=== PATIENT | male | born 1955 | race Caucasian/White ===

== ENCOUNTER 2017-04-20 10:21 | Emergency (ER) | payer BC ==
[2017-04-20 10:24] VITALS: Ht 170.2 cm
[2017-04-20] MEDS ORDERED: MoRPHine SULFATE 10 MG/ML CARP/VIAL IV STA (10:44)
[2017-04-20] MEDS ORDERED: ONDANSETRON INJ 2 MG/ML 2 ML VIAL IV STA (10:44)
[2017-04-20 11:08] LABS: BASO % 0.2 %; BASO ABS # 0.01 K/uL (0-0.2); COMPLETE YES; EOS % 1.6 %; HEMATOCRIT 45.3 % (42-52); IG% 0.2 %; LYMPH % 32.3 %; LYMPH ABS # 1.64 K/uL (1.2-3.4); MEAN CELL VOLUME 88.1 fL (80-100); MEAN CORPUSCULAR HEMOGLOBIN 31.9 pg (25-34); MEAN CORPUSCULAR HGB CONC 36.2 g/dl (32-36); MEAN PLATELET VOLUME 9.9 fL (7.4-10.4); MONO % 9.1 %; NEUT % 56.6 %; PLATELET COUNT 229 K/uL (130-400); RED BLOOD COUNT 5.14 M/uL (4.7-6.1); WHITE BLOOD COUNT 5.07 K/uL (4.8-10.8)
[2017-04-20 11:24] LABS: BLOOD UREA NITROGEN 19 mg/dl (7-18); BUN/CREATININE RATIO 16.6 (10-20); CARBON DIOXIDE 21 mmol/L (21-32); CHLORIDE 108 mmol/L (98-107); CREATININE 1.14 mg/dl (0.60-1.40); GLUCOSE 124 mg/dl (70-99); POTASSIUM 3.4 mmol/L (3.5-5.1); SODIUM 140 mmol/L (136-145)
--- NOTE | 2017-04-20 11:39 | DIAGNOSTIC IMAGING REPORT ---
L PELVIS/UNILATERAL HIP 2-3VIEWS CLINICAL HISTORY: l hip pain pain Discussion: examination shows moderate degenerative narrowing left hip joint space. No evidence for acute fracture present. There is no evidence for acetabular protrusion. COMPARISON: None. . IMPRESSION: Moderate degenerative change. No acute process. The above report was generated using voice recognition software. It may contain grammatical, syntax or spelling errors. Electronically signed by: Moshe Ulloa M.D. 04/20/2017 11:38 AM Dictated Date/Time: 04/20/2017 11:35 AM
[2017-04-20] MEDS ORDERED: METHYLPREDNISOLONE 125 MG VIAL IV STA (12:18)
[2017-04-20] MEDS ORDERED: OXYC1TAB3 PO (12:21)
[2017-04-20] MEDS ORDERED: PRED50TA PO (12:21)
[2017-04-20 12:34] VITALS: BP 132/78; PULSE 68; O2SAT 97
--- NOTE | 2017-04-20 17:47 | EMERGENCY ROOM VISIT NOTE ---
History Report prepared by Jose Cruz: Omar Gale Under the Supervision of: Dr. Sammy Feliciano D.O. First contact with patient: 10:28 Chief Complaint: HIP PAIN Stated Complaint: HIP PAIN History of Present Illness The patient is a 61 year old male who presents to the Emergency Room with complaints of worsening left sided dull/ache-like hip pain that began 2 days ago. He has never experienced this kind of pain before. When his pain began he had just traveled in the car with his for the holiday. He denies any trauma or injury at that time. His pain is intermittently shooting down his left leg. Standing or moving exacerbates his pain. He notes that on his way into the ER this morning, he started to experience tingling to his fingers and toes bilaterally. He has been using ice and heat to try relieve his pain. He is able to urinate and defecate normally. He denies any known medical problems and does not take any medications. He is allergic to Codeine. Pt denies headache, change in vision, fevers, chest pain, shortness of breath, abdominal pain, nausea, vomiting, diarrhea, pain with urination, and melena. No weakness in the legs or numbness. No history of cancer or IV drug use. Source of History: patient Onset: 2 days ago Position: other (Left hip) Symptom Intensity: moderate Quality: ache, dull Timing: worsening Modifying Factors (Worsening): movement, other (Standing) Associated Symptoms: No fevers, No chest pain, No SOB, No nausea, No vomiting, No abdominal pain, No melena, No diarrhea, No urinary symptoms Note: He is having intermittent shooting pains down his left leg. Review of Systems See HPI for pertinent positives & negatives. A total of 10 systems reviewed and were otherwise negative. Past Medical & Surgical Medical Problems: (1) No Known Active Medical Problems Family History Diabetes mellitus FH: cancer Hypertension Social History Smoking Status: Former Smoker Drug Use: none Marital Status: Housing Status: lives with family Occupation Status: retired Current/Historical Medications Scheduled Prednisone (Prednisone), 50 MG PO DAILY Scheduled PRN Oxycodone Immediate Rel Tab (Roxicodone Ir), 5 MG PO Q6H PRN for Pain Allergies Coded Allergies: Codeine (Unverified Allergy, Intermediate, "SICK" AND VERY MEAN, 11/27/17) Physical Exam Vital Signs Date Time Temp Pulse Resp B/P (MAP) Pulse Ox O2 Delivery O2 Flow Rate FiO2 04/20/17 12:34 68 18 132/78 97 Room Air 04/20/17 11:01 67 20 98 Room Air 04/20/17 10:24 93 17 146/99 98 Room Air Physical Exam GENERAL: Lying on right side in moderate distress holding left hip, alert, well appearing, well nourished, non-toxic EYE EXAM: normal conjunctiva. OROPHARYNX: no exudate, no erythema, lips, buccal mucosa, and tongue normal and mucous membranes are moist NECK: supple, no nuchal rigidity, no adenopathy, non-tender LUNGS: Clear to auscultation. Normal chest wall mechanics HEART: no murmurs, S1 normal and S2 normal ABDOMEN: abdomen soft, non-tender, normo-active bowel sounds, no masses, no rebound or guarding. BACK: Back is symmetrical on inspection and there is no deformity, no midline tenderness, no CVA tenderness. SKIN: no rashes and no bruising UPPER EXTREMITIES: upper extremities are grossly normal. LOWER EXTREMITIES: Flexion and extension of the left hip, knee, ankle, and EHL 5 /5. Gross sensation intact. There is moderate pain with flexion beyond 70 degrees in the hip. Skin is intact. DP 2/4. Tenderness around the left femoral head/neck on palpation. NEURO EXAM: Normal sensorium. Medical Decision & Procedures ER Provider Diagnostic Interpretation: Radiology results as stated below per my review and the radiologist's interpretation: L PELVIS/UNILATERAL HIP 2-3VIEWS CLINICAL HISTORY: l hip pain pain Discussion: examination shows moderate degenerative narrowing left hip joint space. No evidence for acute fracture present. There is no evidence for acetabular protrusion. COMPARISON: None. IMPRESSION: Moderate degenerative change. No acute process. The above report was generated using voice recognition software. It may contain grammatical, syntax or spelling errors. Electronically signed by: Moshe Ulloa M.D. 04/20/2017 11:38 AM Dictated Date/Time: 04/20/2017 11:35 AM Laboratory Results 04/20/17 10:55 Red Blood Count 5.14, Mean Corpuscular Volume 88.1, Mean Corpuscular Hemoglobin 31.9, Mean Corpuscular Hemoglobin Concent 36.2, Mean Platelet Volume 9.9, Neutrophils (%) (Auto) 56.6, Lymphocytes (%) (Auto) 32.3, Monocytes (%) (Auto) 9.1, Eosinophils (%) (Auto) 1.6, Basophils (%) (Auto) 0.2, Neutrophils # (Auto) 2.87, Lymphocytes # (Auto) 1.64, Monocytes # (Auto) 0.46, Eosinophils # (Auto) 0.08, Basophils # (Auto) 0.01 04/20/17 10:55 Test 04/20/17 10:55 White Blood Count 5.07 K/uL (4.8-10.8) Red Blood Count 5.14 M/uL (4.7-6.1) Hemoglobin 16.4 g/dL (14.0-18.0) Hematocrit 45.3 % (42-52) Mean Corpuscular Volume 88.1 fL (80-100) Mean Corpuscular Hemoglobin 31.9 pg (25-34) Mean Corpuscular Hemoglobin Concent 36.2 g/dl (32-36) Platelet Count 229 K/uL (130-400) Mean Platelet Volume 9.9 fL (7.4-10.4) Neutrophils (%) (Auto) 56.6 % Lymphocytes (%) (Auto) 32.3 % Monocytes (%) (Auto) 9.1 % Eosinophils (%) (Auto) 1.6 % Basophils (%) (Auto) 0.2 % Neutrophils # (Auto) 2.87 K/uL (1.4-6.5) Lymphocytes # (Auto) 1.64 K/uL (1.2-3.4) Monocytes # (Auto) 0.46 K/uL (0.11-0.59) Eosinophils # (Auto) 0.08 K/uL (0-0.5) Basophils # (Auto) 0.01 K/uL (0-0.2) RDW Standard Deviation 41.4 fL (36.4-46.3) RDW Coefficient of Variation 12.9 % (11.5-14.5) Immature Granulocyte % (Auto) 0.2 % Immature Granulocyte # (Auto) 0.01 K/uL (0.00-0.02) Anion Gap 11.0 mmol/L (3-11) Estimated GFR () 80.6 Estimated GFR (Non- 69.5 BUN/Creatinine Ratio 16.6 (10-20) Calcium Level 9.0 mg/dl (8.5-10.1) Laboratory results per my review. Medications Administered Medications (Trade) Dose Ordered Sig/Eugenie Route Start Time Stop Time Status Last Admin Dose Admin Morphine Sulfate (MoRPHine SULFATE INJ) 6 mg NOW STAT IV 04/20/17 10:44 04/20/17 10:46 DC 04/20/17 10:59 6 MG Ondansetron HCl (Zofran Inj) 4 mg NOW STAT IV 04/20/17 10:44 04/20/17 10:46 DC 04/20/17 10:59 4 MG Methylprednisolone Sodium Succinate (Solu-Medrol IV) 125 mg NOW STAT IV 04/20/17 12:18 04/20/17 12:19 DC 04/20/17 12:34 125 MG ED Course ED COURSE: Vital signs were reviewed and showed hypertension. The patients medical record was reviewed The above diagnostic studies were performed and reviewed. ED treatments and interventions as stated above. 1028: The patient was evaluated in room A10. A complete history and physical examination was performed. 1044: Ordered Zofran Inj 4 mg IV, Morphine Sulfate 6 mg IV 1218: Ordered Solu-Medrol IV 125 mg IV 1220: Upon reevaluation, the patient is resting. He states that he has had Oxycodone in the past without any issues. I discussed my findings with the patient and he understands and agrees with the treatment plan. Based on the patients age, coexisting illnesses, exam and lab findings the decision to treat as an outpatient was made. The patient remained stable while under my care. The patient appeared well at the time of discharge. Medical Decision Differential diagnosis: Etiologies such as fracture, dislocation, neurovascular compromise, compartment syndrome, soft tissue injury, as well as others were entertained. Patient is a 61-year-old male who presents to ER for left hip pain which started 2 days ago while he was sitting in the car. Denies any trauma. No history cancer fevers. No IV drug use. On exam is acute tenderness tracking through his left SI joint down the back of his left leg. CBC was unremarkable. BMP shows a potassium of 3.4. X-ray of the hip and pelvis was unremarkable. Pain is clearly reproducible. No swelling. Nothing to suggest DVT. Pulses are intact. Patient was given IV morphine and Toradol with improvement of pain. He was given IV steroids. He was discharged with sciatica to follow-up with PCP. Discussed with Pt concerning signs and symptoms to watch out for. Pt was instructed to follow up with their PCP and discussed with the patient their option to return to the ED at anytime for persistent or worsening symptoms. The appropriate anticipatory guidance and out-patient management, including indications for return to the emergency department, were explained at length to the patient and understood. [place] Drug Monitoring Program Search Results: patient reviewed within database, no issues identified Medication Reconcilliation Current Medication List: was personally reviewed by me Blood Pressure Screening Patient's blood pressure: Elevated blood pressure Blood pressure disposition: Elevated BP felt to be situational Impression Primary Impression: Hip pain Additional Impression: Hypokalemia Scribe Attestation The scribe's documentation has been prepared under my direction and personally reviewed by me in its entirety. I confirm that the note above accurately reflects all work, treatment, procedures, and medical decision making performed by me. Departure Information Dispostion Home / Self-Care Prescriptions Oxycodone Immediate Rel Tab (ROXICODONE IR) 5 Mg Tab 5 MG PO Q6H Y for Pain, #10 TAB Prov: Sammy Feliciano, DO 04/20/17 Prednisone (PREDNISONE) 50 Mg Tab 50 MG PO DAILY for 4 Days, TAB Prov: Sammy Feliciano, DO 04/20/17 Referrals Alcon Remy M.D. Forms HOME CARE DOCUMENTATION FORM, IMPORTANT VISIT INFORMATION, WORK / SCHOOL INSTRUCTIONS Patient Instructions ED Sciatica, My [facility] Additional Instructions Please follow up with your primary care doctor with in the next 24 hours. Any worsening of your symptoms, please return to the ED immediately. This includes any fevers greater than 100.4, worsening pain, weakness in your legs, inability to walk, numbness in her groin, unable to urinate, unable to move bowels, chest pain, shortness breath, persistent nausea, vomiting, unable to eat or drink, or any other concerning signs or symptoms from your standpoint. You were given medications during this visit that will inhibit your ability to drive, operate machinery and work. Please do NOT drive, operate machinery or work for the next 12hrs. You were also given a prescription for a narcotic. While taking this medication you should also not drive, operate machinery and or work. Problem Qualifiers Primary Impression: Hip pain Laterality: left Qualified Codes: M25.552 - Pain in left hip
== END 2017-04-20 12:43 | disposition home or self-care (01) ==
LOC: C.EDB 10:22 → C.EDA 12:43
DX: M25.552 Pain in left hip (principal); E87.6 Hypokalemia; Z87.891 Personal history of nicotine dependence; Z88.5 Allergy status to narcotic agent; Z83.3 Family history of diabetes mellitus; Z80.9 Family history of malignant neoplasm, unspecified; Z82.49 Family history of ischemic heart disease and other diseases of the circulatory system

== ENCOUNTER 2017-04-25 20:13 | Inpatient (IN) | payer BC ==
[~2017-04-25] VITALS: Ht 172.7 cm; Wt 75.0 kg
[~2017-04-25 20:13] MED LIST: OXYC1TAB3 PO; PRED50TA PO
[2017-04-25] MEDS ORDERED: HYDR-5688 PO (20:52)
[2017-04-25] MEDS ORDERED: MAGN400T6 PO (20:52)
[2017-04-25] MEDS ORDERED: DOCU100T7 PO (20:52)
[2017-04-25] MEDS ORDERED: KETO10TA PO (20:52)
--- NOTE | 2017-04-25 21:33 | EMERGENCY ROOM VISIT NOTE ---
History Report prepared by Jose Cruz: Ramu Goodman Under the Supervision of: Dr. Dayan Prieto D.O. 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 He reports being in severe pain, screaming, and unable to get out of bed due to the pain. EMS gave him 4 mg of morphine and 4 mg of Zofran, which he notes has improved his pain. He currently rates his pain a 3/10 in severity. He notes he has left foot numbness, left leg weakness, mild abdominal pain, and mild back pain. He reports taking a stool softener today and yesterday. He notes taking magnesium supplements to help his constipation. He reported to the ED 6 days ago with similar symptoms. He was given steroids for four days. He was seen by his orthopedic doctor, Dr. Perry five days ago whom prescribed Toradol, which he began yesterday. He reports the pain worsened overnight. He notes Dr. Perry thinks he has sciatica. He notes a history of a herniated disc and back injury. He is taking Acetominophen, Toradol and Hydrocodone for pain at home. He last ate 9 hours ago. He has been unable to defecate recently due to his pain. 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 Review of Systems See HPI for pertinent positives & negatives. A total of 10 systems reviewed and were otherwise negative. Past Medical & Surgical Medical Problems: (1) Ambulatory dysfunction (2) No Known Active Medical Problems (3) Radiculopathy due to lumbar intervertebral disc disorder Family History Diabetes mellitus FH: cancer Hypertension Social History Smoking Status: Former Smoker Drug Use: none Marital Status: Housing Status: lives with family Occupation Status: retired Current/Historical Medications Scheduled Docusate Sodium (Stool Softener), 1 TAB PO DAILY Magnesium Oxide (Mag-Ox), 400 MG PO DAILY Scheduled PRN Hydrocodone/Acetaminophen 5MG/325MG ([place] 5MG/325MG), 1-2 TABLET PO Q6H PRN for Pain Ketorolac (Toradol), 10 MG PO Q6H PRN for Pain Allergies Coded Allergies: Codeine (Unverified Allergy, Intermediate, "SICK" AND VERY MEAN, 04/25/17) Physical Exam Vital Signs Date Time Temp Pulse Resp B/P (MAP) Pulse Ox O2 Delivery O2 Flow Rate FiO2 04/25/17 23:33 65 18 114/65 93 Room Air 04/25/17 22:08 65 18 117/81 97 Room Air 04/25/17 20:21 36.5 75 18 145/83 99 Room Air Physical Exam HEENT: Head - normocephalic and atraumatic. Pupils are equal, round, and reactive to light. Extraocular eye muscles are intact and sclera are anicteric. Ears - bilaterally patent canals with noninjected tympanic membranes and no evidence of hemotympanum. Nose - moist nasal mucosa without discharge. Mouth - moist buccal mucosa. Oropharynx is nonerythematous and there is no tonsillar exudate or edema noted. Neck: Supple; no JVD, nuchal rigidity, cervical lymphadenopathy. Heart: Regular rate and rhythm. There is a normal S1 and S2 with no murmurs, clicks, or gallops appreciated. Lungs: Clear to auscultation bilaterally with no wheezes, rales, or rhonchi. Abdomen: Soft, completely nontender, nondistended, with good bowel sounds. There are no palpable pulsatile masses or hepatosplenomegaly. There is no guarding, rigidity, or rebound noted. Extremities: No evidence of cyanosis, clubbing, or edema. There are easily palpable peripheral pulses. Weakness with pedal push and pull of the LLE and weakness with flexion of the left hip. Patellar reflexes are normal bilaterally. Medical Decision & Procedures ER Provider Diagnostic Interpretation: Radiology results as stated below per my review and [facility] interpretation: MRI L SPINE: Multilevel degenerative disc disease of the lumbar spine, worse at L4-L5 where there is severe left foraminal narrowing. L1-L2, posterior disc bulge and facet arthropathy cause mild canal narrowing. Mild edema signal at the inferior endplate of L1 is favored to be degenerative in etiology. L2-L3, posterior disc bulge with annular fissure. Facet arthroplasty. Mild canal and foraminal narrowing. L3-L4, right lateral disc protrusion with annular fissure causes mild mass effect on the exited right L3 nerve root. L4-L5, moderate disc space narrowing. Posterior disc extrusion/osteophyte complex and facet arthropathy/ligamentous hypertrophy causes moderate left lateral recess narrowing, severe left foraminal narrowing, and, moderate right foraminal narrowing. Minimal canal narrowing. Medications Administered Medications (Trade) Dose Ordered Sig/Eugenie Route Start Time Stop Time Status Last Admin Dose Admin Ketorolac Tromethamine (Toradol Inj) 30 mg NOW STAT IV 04/25/17 22:02 04/25/17 22:03 DC 04/25/17 22:17 30 MG Lorazepam (Ativan Inj) 1 mg NOW STAT IV 04/25/17 22:02 04/25/17 22:03 DC 04/25/17 22:16 1 MG Morphine Sulfate (MoRPHine SULFATE INJ) 4 mg NOW STAT IV 04/25/17 23:20 04/25/17 23:21 DC 04/25/17 23:30 4 MG Procedure Ordered Lorazepam IV Ordered Toradol IV Ordered Morphine Sulfate IV ED Course 2020: Patient was evaluated in room C3. A complete history and physical examination was performed. IV lock was established. 2107: I reassessed the patient at this time. He is resting, but still in pain. 2201: I reassessed the patient at this time. He is headed to MRI. He is still in pain. 6: Ordered Lorazepam 1 mg IV 2217: Ordered Toradol 30 mg IV 2318: I reassessed the patient at this time. He is still in pain. I ordered morphine. 2330: Ordered Morphine Sulfate 4 mg IV 2342: I reassessed the patient at this time. He is resting comfortably. 0: Upon reevaluation, I discussed findings and results with him. He verbalized agreement of the treatment plan. I spoke with Dr. Bishop, hospitalist of the [facility]. The patient will be evaluated for further management and care. Medical Decision The patient is a 61 year old male who presents to the ED with left hip pain. Differential diagnosis includes degenerative joint to left hip, sciatica, and lumbar radiculopathy. The patient has had a sudden increase in his left hip pain and left lower extremity pain. He had been seen by Dr. donovan garcia who prescribed a short course of steroids and then nonsteroidal anti-inflammatories. Unfortunately, the patient's pain has significantly escalated. He was unable to get out of bed or move about his house. The patient was brought emergency department by a balance after receiving IV morphine. Patient underwent MRI here in the emergency department which shows significant disc extrusion and osteophyte formation at the L4-L5 neural foramina on the left which is most likely contribute into the patient's symptoms. The patient is to have intractable pain. I discussed the case with the patient and his . I discussed the case with Dr. Sol he will evaluate for further management. Medication Reconcilliation Current Medication List: was personally reviewed by me Blood Pressure Screening Patient's blood pressure: Normal blood pressure Consults Time Called: 005 Consulting Physician: Dr. Bishop hospitalist Returned Call: [address] Bishop, hospitalist of the [facility]. The patient will be evaluated for further management and care. Impression Primary Impression: Intractable neuropathic pain of left lower extremity Additional Impression: Lumbar radiculopathy, acute Scribe Attestation The scribe's documentation has been prepared under my direction and personally reviewed by me in its entirety. I confirm that the note above accurately reflects all work, treatment, procedures, and medical decision making performed by me. Departure Information Dispostion Being Evaluated By Hospitalist Referrals Alcon Remy M.D. (PCP) Patient Instructions My [facility] Problem Qualifiers
[2017-04-25] MEDS ORDERED: LORAZEPAM 2 MG/ML 1 ML VIAL IV STA (22:02)
[2017-04-25] MEDS ORDERED: KETOROLAC TROMETHAMINE 30 MG/ML VIAL IV STA (22:02)
[2017-04-25] MEDS ORDERED: MoRPHine SULFATE 4 MG/ML 1 ML CARP\\VIAL IV STA (23:20)
[2017-04-26] MEDS ORDERED: ZOLPIDEM TARTRATE 5 MG TAB PO PRN (01:30)
[2017-04-26] MEDS ORDERED: ONDANSETRON INJ 2 MG/ML 2 ML VIAL IV PRN (01:30)
[2017-04-26] MEDS ORDERED: MAGNESIUM HYDROXIDE SUSP 30 ML UDC PO PRN (01:30)
[2017-04-26] MEDS ORDERED: ACETAMINOPHEN 325 MG TAB PO PRN (01:30)
[2017-04-26] MEDS ORDERED: DEXAMETHASONE INJ 10 MG in SYRINGE 0 ML IV SCH (01:30)
--- NOTE | 2017-04-26 01:34 | History and Physical ---
History & Physical Date & Time of Service: Apr 26, 2017 at 01:27 Chief Complaint: Back Pain Primary Care Physician: Alcon Remy M.D. History of Present Illness Source: patient, hospital records This is a 61 yo m with DDD that is suffering from left lower extremity pain starting approx a week prior. The pain was acute in nature and no trauma was associated with it. The pain affects the left lateral thigh and the left lateral calf and extends to the left lateral malleolus. The pain is aggravated with any movement and in particular flexion of the back. He was evaluated by ortho mid week and plan was for conservative treatment and steroids. Patient has been on his regimen with progression of his pain. As there was worsening pain despite conservative measures the family came to the ED for evaluation. He was noted to have significant DDD on MRI. Past Medical/Surgical History DDD Family History Diabetes mellitus FH: cancer Hypertension Social History Smoking Status: Former Smoker Smokeless Tobacco Use: No Alcohol Use: none Drug Use: none Marital Status: Housing status: lives with family Occupational Status: retired Immunizations History of Influenza Vaccine: Unknown History of Tetanus Vaccine?: Unknown History of Pneumococcal: Unknown History of Hepatitis B Vaccine: Unknown Multi-Drug Resistant Organisms History of MDRO: No Allergies Coded Allergies: Codeine (Unverified Allergy, Intermediate, "SICK" AND VERY MEAN, 04/25/17) Home Medications Scheduled Docusate Sodium (Stool Softener), 1 TAB PO DAILY Magnesium Oxide (Mag-Ox), 400 MG PO DAILY Scheduled PRN Hydrocodone/Acetaminophen 5MG/325MG ([place] 5MG/325MG), 1-2 TABLET PO Q6H PRN for Pain Ketorolac (Toradol), 10 MG PO Q6H PRN for Pain Review of Systems Constitutional: No fever, No chills, No sweats Eyes: No worsening of vision ENT: No hearing loss Respiratory: No cough, No sputum, No wheezing, No shortness of breath, No dyspnea on exertion, No dyspnea at rest Cardiovascular: No chest pain Abdomen: No pain, No nausea, No vomiting, No diarrhea, No constipation Musculoskeletal: + joint pain, + problem reported (as noted above ) Neurologic: + weakness, + numbness/tingling (left lateral calf), + balance problems Psychiatric: + anxiety Endocrine: No fatigue Hematologic / Lymphatic: No abnormal bleeding/bruising Integumentary: No rash Physical Exam Vital Signs Date Time Temp Pulse Resp B/P (MAP) Pulse Ox O2 Delivery O2 Flow Rate FiO2 04/25/17 23:33 65 18 114/65 93 Room Air 04/25/17 22:08 65 18 117/81 97 Room Air 04/25/17 20:21 36.5 75 18 145/83 99 Room Air General Appearance: + mild distress Head: normocephalic, atraumatic Eyes: normal inspection ENT: normal ENT inspection Neck: supple Respiratory/Chest: normal breath sounds, no respiratory distress, no accessory muscle use Cardiovascular: regular rate, rhythm, no murmur, normal peripheral pulses Abdomen/GI: normal bowel sounds, non tender, soft Back: normal inspection, no CVA tenderness Extremities/Musculoskelatal: normal inspection, no calf tenderness, no pedal edema, normal range of motion, + pertinent finding (straight leg positive left LE, sensation intact in bilat LE, limited ROM exam secondary to pain) Neurologic/Psych: alert, normal mood/affect, oriented x 3 Skin: normal color, warm/dry, no rash Lymphatic: no adenopathy Impression Assessment and Plan This is a 61 yo m suffering from L5 radiculopathy secondary to disc herniation/ DDD. No red flag signs noted however the patient has failed outpatient mx and will be admitted to Obs for further evaluation and treatment L5 radiculopathy, failure for outpatient tx - med surg- obs - Dilaudid/ oxycodone for pain control - Decadron 10 mg x 1 - pt/ot DVT Prophylaxis scd Attending addendum: I have physically seen this patient, have supervised the medical residents activities, and agree with the H&P unless as otherwise noted. Assessment and Plan: 1. L4- 5 severe degenerative disc disease/left lower extremity radiculopathy-- Patient with intolerable pain and early loss of muscle tone in left lower extremity. Admit to medical surgical. Give Decadron 10 mg IV in the ED, and then continue to 4 mg IV every 6 hours Tylenol when necessary mild pain, oxycodone when necessary moderate pain, Dilaudid IV when necessary severe pain. Consult his orthopedic spine surgeon Dr. Perry. Level of Care Med/Surg Advanced Directives Existing Advance Directive: No Existing Living Will: No Existing Power of Rn Patient Care: No Resuscitation Status FULL RESUSCITATION VTE Prophylaxis VTE Risk Assessment Done? Y/N: Yes Risk Level: Moderate Given or contraindicated: SCD's Social Service Consult None Apply Note Total Time: Critical Care 30 - 74 minutes Additional Copies To Alcon Remy M.D.
[2017-04-26 02:00] VITALS: BP 150/77; PULSE 78; TEMP 36.9; O2SAT 93
[2017-04-26 02:15] VITALS: Ht 172.7 cm; Wt 75.0 kg
[2017-04-26] MEDS: HYDROmorphone INJ 0.5 MG/0.5 ML SYR IV PRN ×2 (02:16→07:42)
[2017-04-26] MEDS: OXYCODONE HCL IR 5 MG TAB (IMMEDIATE RELEASE) PO PRN ×3 (03:30→17:50)
[2017-04-26] MEDS ORDERED: NURSING VERBAL MED ORDER ONE (05:30)
[2017-04-26] MEDS ORDERED: HYDROmorphone INJ 1 MG/ML SYR ONE (05:57)
[2017-04-26] MEDS ORDERED: HYDROmorphone INJ 1 MG/ML SYR IV STA (05:57)
[2017-04-26 07:24] VITALS: BP 122/76; PULSE 73; TEMP 36.5; O2SAT 90
--- NOTE | 2017-04-26 08:32 | DIAGNOSTIC IMAGING REPORT ---
MRI LUMBAR SPINE WITHOUT IV CONTRAST CLINICAL HISTORY: Left leg weakness. COMPARISON STUDY: No priors TECHNIQUE: MRI of the lumbar spine is performed utilizing various T1 and T2-weighted sequences in the axial and sagittal planes. IV contrast was not administered for this examination. The examination is significantly degraded by motion artifact. FINDINGS: Lumbar spine: Vertebral body height is maintained throughout the lumbar spine. Minimal retrolisthesis is seen at L1-L2, L2-L3, and L4-L5. Small anterior osteophytes are seen throughout. The transverse and spinous processes appear intact. There is no evidence of spondylolysis. Degenerative endplate edema is seen at L1-L2. Mild chronic degenerative endplate change is seen at L4-L5. No destructive bony lesion is suspected. Intervertebral discs: There is degenerative disc desiccation seen throughout the lumbar spine. Moderate loss of height is seen at L4-L5. Mild loss of height is seen at the remaining lumbar levels. Spinal cord: The visualized spinal cord is normal in morphology and signal intensity. The conus medullaris terminates at the T12-L1 interspace. The nerve roots of the cauda equina are normal in morphology. T12-L1: There is a small posterior disc bulge. The central canal and neural foramina appear patent. L1-L2: There is a broad-based posterior disc bulge with annular fissure. There is no significant acquired compromise of the central canal. Mild bilateral subarticular stenosis is observed. The neural foramina appear patent. L1-L2: There is posterior disc bulge and annular fissure. In conjunction with hypertrophy of the ligamentum flavum there is mild acquired compromise of the central canal at this level with a minimum AP diameter of 8.5 mm. There is bilateral subarticular stenosis. This may abut the exiting bilateral L2 nerve roots and the transiting bilateral L3 nerve roots. L3-L4: There is a small posterior disc bulge eccentric to the right. There is only minimal acquired compromise of the central canal at this level. The minimum AP diameter measures 9 mm. There is mild bilateral subarticular stenosis. This may abut the exiting right L3 nerve root and the transiting bilateral L4 nerve roots. The neural foramina appear patent. L4-L5: There is a broad-based posterior disc bulge eccentric to the right. There is no significant acquired central canal compromise at this level. The disc bulge effaces the subarticular space bilaterally and may impinge on the exiting bilateral L4 as well as the transiting right L5 nerve roots. Facet arthropathy causes moderate to severe bilateral neural foraminal stenosis at this level. L5-S1: The central canal is widely patent. Facet arthropathy causes minimal bilateral neural foraminal stenosis. Sacrum: The visualized sacrum is normal in morphology and signal intensity. Soft tissues: The paraspinous soft tissues are normal as imaged. The retroperitoneal structures are grossly normal but incompletely assessed. IMPRESSION: 1. Multilevel lumbosacral spondylosis as above with mild multilevel acquired compromise of the central canal. See discussion for detailed level by level analysis. 2. No destructive bony process is seen. 3. Degenerative endplate edema is noted at L1-L2. Dictated: 04/26/2017 6:51 AM Transcribed: 04/26/2017 8:32 AM JERRY_Laura Electronically signed by: Leonard Dasilva M.D. 04/26/2017 8:39 AM Dictated Date/Time: 04/26/2017 6:51 AM
--- NOTE | 2017-04-26 11:21 | ORTHOPEDIC CONSULTATION ---
DATE OF CONSULTATION: 04/26/2017 CHIEF COMPLAINT: Severe radiculopathy of the left leg. HISTORY OF PRESENT ILLNESS: Hugh is a pleasant 61-year-old male who has a long history of on and off low back pain. Over the past week, he has become much worse. He did see Dr. Augusto Perry in the office on Thursday who got x-rays which confirmed degenerative disk disease of his lumbar spine. He was given oral steroids and pain medications. Unfortunately, throughout the end of the week, his symptoms progressed. They worsened to the point where he came to the Emergency Room, last night. He was evaluated in the Emergency Room and given Decadron as well as Dilaudid, but he was still having severe lower extremity pain. He was unable to get up and ambulate. He was admitted to the medical service and an MRI was obtained of his lumbar spine. Orthopedics was then consulted for evaluation and treatment. PAST MEDICAL HISTORY: Significant for degenerative disk disease of the lumbar spine. ALLERGIES: CODEINE. MEDICATIONS: Include Warren 5/325 as needed for pain, Toradol 10 mg every 6 hours as needed for pain prescribed by Dr. Perry, magnesium 400 mg daily, and Dulcolax 1 tab daily. FAMILY HISTORY: Significant for diabetes and hypertension. SOCIAL HISTORY: He is a retired correctional facility officer. He currently lives with his . REVIEW OF SYSTEMS: He complains of severe back and left leg pain. All other pertinent review of systems are negative. PHYSICAL EXAMINATION: He is lying in bed and I am unable to sit him up or to move him. He is sitting with a pillow under his knees and he says this is the only way that he can get relief. I did a very minimal straight leg raise and he had significant pain in his buttock region into his left hip and down the anterior aspect of his left leg into the lateral aspect of his left foot. He did have 5/5 muscle strength with dorsiflexion and plantar flexion of his left foot and 5/5 muscle strength with big toe extension. His sensation was intact. He was currently having burning and radicular type symptoms into his leg. IMAGING DATA: MRI of the lumbar spine reviewed personally as well as radiology report does show multilevel degenerative disk disease with some mild to moderate canal compromise. It seems to be most severe at the L4-L5 level. IMPRESSION: Degenerative disc disease of the lumbar spine with left-sided radiculopathy. PLAN: He is currently on the medical service. He is getting Dilaudid and oxycodone for the pain. I will be in contact with my partner Dr. Perry to see if he is in town and can see him if he thinks he is an operative candidate. In the meantime, we will certainly continue with the pain control.
--- NOTE | 2017-04-26 12:59 | Progress Note ---
Subjective Date of Service: Apr 26, 2017. Subjective Pt evaluation today including: conversation w/ patient, conversation w/ family , physical exam, chart review, lab review, review of studies, review of inpatient medication list Problem List Medical Problems: (1) Hip pain Status: Acute (2) Intractable neuropathic pain of left lower extremity Status: Acute (3) Lumbar radiculopathy, acute Status: Acute Review of Systems Constitutional: No see HPI, No fever, No chills, No sweats, No weight loss, No weakness, No fatigue, No problem reported Eyes: No see HPI, No worsening of vision, No eye pain, No redness, No discharge , No diplopia, No problem reported ENT: No see HPI, No hearing loss, No unusual epistaxis, No nasal symptoms, No sore throat, No tinnitus, No dental problems, No trouble swallowing, No problem reported Respiratory: No see HPI, No cough, No sputum, No wheezing, No shortness of breath, No dyspnea on exertion, No dyspnea at rest, No hemoptysis, No problem reported Cardiac: No see HPI, No chest pain, No orthopnea, No PND, No edema, No claudication, No palpitations, No problem reported Abdomen: No see HPI, No pain, No nausea, No vomiting, No diarrhea, No constipation, No GI bleeding, No problem reported Musculoskeletal: + joint pain, + muscle pain, + problem reported (severe left hip pain), No see HPI, No swelling, No calf pain Male : No see HPI, No dysuria, No urinary frequency, No incontinence, No nocturia more than once/night, No slowing stream, No hematuria, No sexual dysfunction, No problem reported Neurologic: No see HPI, No memory loss, No paralysis, No weakness, No numbness/ tingling, No vertigo, No balance problems, No problem reported Psychiatric: No see HPI, No depression symptoms, No anhedonism, No anxiety, No insomnia, No substance abuse, No problem reported Heme: No see HPI, No abnormal bleeding/bruising, No clotting problems, No swollen lymph nodes, No night sweats, No problem reported Endo: No see HPI, No fatigue, No excessive thirst, No excessive urination, No problem reported Skin: No see HPI, No rash, No itch, No new/changing skin lesions, No color change, No bleeding, No problem reported Objective Vital Signs Date Time Temp Pulse Resp B/P (MAP) Pulse Ox O2 Delivery O2 Flow Rate FiO2 04/26/17 07:50 Room Air 04/26/17 07:24 36.5 73 19 122/76 (91) 90 Room Air 04/26/17 02:15 Room Air 04/26/17 02:15 Room Air 04/26/17 02:00 36.9 78 18 150/77 (101) 93 Room Air 04/26/17 01:31 69 18 118/71 94 Room Air 04/25/17 23:33 65 18 114/65 93 Room Air 04/25/17 22:08 65 18 117/81 97 Room Air 04/25/17 20:21 36.5 75 18 145/83 99 Room Air Physical Exam General Appearance: WD/WN, no apparent distress Eyes: normal inspection, EOMI ENT: normal ENT inspection, hearing grossly normal Neck: supple Respiratory/Chest: chest non-tender, lungs clear, normal breath sounds, no respiratory distress, no accessory muscle use Cardiovascular: regular rate, rhythm, no edema, no gallop, no JVD, no murmur Abdomen: normal bowel sounds, non tender, soft, no organomegaly, no pulsatile mass Extremities: + pertinent finding (lower back spasm, decrease ROM, also tenderness on left hip) Neurologic/Psychiatric: wellness consultant II-XII nml as tested, no motor/sensory deficits, alert, normal mood/affect, oriented x 3 Skin: normal color, warm/dry, no rash Assessment and Plan 61 years old man presented to the ED with one-week history of severe lower back pain/spasm. Failed outpatient conservative management. MRI showed Multilevel lumbosacral spondylosis with mild multilevel acquired compromise of the central canal. endplate edema L1-L2. Assessment Intractable lower back pain/spasm secondary to below Lower back degenerative disease Lumbosacral multilevel spondylosis L1-L2 endplate edema Left lower extremity radiculopathy plan Orthopedic consult appreciated Continue patient on low-dose IV steroids IV fluid hydration Continue Dilaudid IV Continue Toradol IV DVT prophylaxis Flexeril for muscle relaxant
[2017-04-26] MEDS: SODIUM CHLORIDE 0.9% 1000ML 1,000 ML IV SCH (13:37)
[2017-04-26] MEDS: DEXAMETHASONE INJ 4 MG in SYRINGE 0 ML IV SCH ×3 (13:45→21:20)
[2017-04-26] MEDS: CYCLOBENZAPRINE HCL 10 MG TAB PO SCH ×2 (13:45→21:25)
[2017-04-26] MEDS ORDERED: IV FLUIDS COMPLETED PRN (14:00)
[2017-04-26] MEDS: KETOROLAC TROMETHAMINE 15 MG/ML VIAL IV. PRN (15:22)
[2017-04-26 15:30] VITALS: BP 124/76; PULSE 82; TEMP 36.7; O2SAT 94
[2017-04-26] MEDS: ALUMINUM/MAGNESIUM/SIMETH (MAALOX MAX) 30 ML UDC PO PRN (18:23)
--- NOTE | 2017-04-26 18:53 | HISTORY & PHYSICAL EXAMINATION ---
DATE OF ADMISSION: 04/26/2017 HISTORY OF PRESENT ILLNESS: Hugh is a delightful gentleman, he is 61. I remember him from the office approximately 5 days ago. He has significant radiculopathy. He made 1 trip to the Emergency Room, made another trip to the Emergency Room. He was essentially incapacitated. It took him approximately 3 hours just to get sitting in the bed because of excruciating pain. He has left leg pain only. He has a spondylolisthesis in the severely degenerative segment at L4-L5 with nerve root compression. He was admitted and thankfully and appreciatively to the medical service earlier yesterday and consulted Dr. Harjeet Gaona, my partner. MEDICAL AND SURGICAL HISTORY: All reviewed. PHYSICAL EXAMINATION: EXTREMITIES: Normal. No edema, adequate range of motion, significant pain with straight leg raising on the left hand side but sensation seems to be intact. I felt his motor strength was satisfactory as well, did not seem to have a deficit to push off strength plantar or dorsiflexion. He is alert and oriented. RECTAL: I did not do a rectal examination. I reviewed his images. He has severe degenerative segment at L4-L5, low grade spondylolisthesis. He has hypertrophy of the facet joint, L4-L5 which contributes to this very severe radiculopathy. It is almost equivalent or may be actually a synovial cyst of the L4-L5 facet. PLAN: We will continue with the pain management regimen currently. We will feed him. I will be in my office tomorrow the 27 of April and will try to make arrangements for surgery. It is a surgical problem. In my experience he will not escape and get better without a surgical intervention. I am holding off on pain management right now, I do not think that is the proper avenue. I will try to rearrange my schedule, Thursday, Thursday of this coming week and may we can get him on the schedule later on this week. I told the patient that we do not just put him on the schedule late in the afternoon or evening because of the tedious and serious nature of the surgical intervention. He seemed to understand, asked intelligent questions and I will continue to work his case. Currently, we will feed him and no surgery will be tomorrow, possibly the next day or the day after.
[2017-04-26] MEDS: HYDROmorphone INJ 2 MG/ML SYR/VIAL IV PRN (21:20)
[2017-04-26 22:55] VITALS: BP 123/74; PULSE 84; TEMP 36.7; O2SAT 95
[2017-04-27] MEDS: HYDROmorphone INJ 2 MG/ML SYR/VIAL IV PRN (03:18)
[2017-04-27 06:42] LABS: BASO % 0.1 %; BASO ABS # 0.01 K/uL (0-0.2); COMPLETE YES; HEMATOCRIT 49.8 % (42-52); IG% 0.6 %; LYMPH % 6.8 %; LYMPH ABS # 1.23 K/uL (1.2-3.4); MEAN CELL VOLUME 88.6 fL (80-100); MEAN CORPUSCULAR HEMOGLOBIN 31.7 pg (25-34); MEAN CORPUSCULAR HGB CONC 35.7 g/dl (32-36); MEAN PLATELET VOLUME 9.9 fL (7.4-10.4); MONO % 4.8 %; NEUT % 87.7 %; PLATELET COUNT 305 K/uL (130-400); RED BLOOD COUNT 5.62 M/uL (4.7-6.1); WHITE BLOOD COUNT 18.12 K/uL (4.8-10.8)
[2017-04-27 07:18] LABS: ALB/GLOB RATIO 0.9 (0.9-2); BUN/CREATININE RATIO 24.1 (10-20); CALCIUM 8.2 mg/dl (8.5-10.1); CREATININE 1.21 mg/dl (0.60-1.40); MAGNESIUM 2.4 mg/dl (1.8-2.4); POTASSIUM 4.2 mmol/L (3.5-5.1)
[2017-04-27 07:19] LABS: C-REACTIVE PROTEIN 0.82 mg/dl (0-0.29)
[2017-04-27 08:03] VITALS: BP 124/72; PULSE 86; TEMP 36.7; O2SAT 95
[2017-04-27 08:17] VITALS: O2SAT 95
[2017-04-27] MEDS ORDERED: NURSING VERBAL MED ORDER ONE (08:30)
[2017-04-27] MEDS ORDERED: BISACODYL 10 MG SUPP PR ONE (09:00)
[2017-04-27] MEDS: CYCLOBENZAPRINE HCL 10 MG TAB PO SCH ×3 (09:00→20:12)
[2017-04-27] MEDS: SODIUM CHLORIDE 0.9% 1000ML 1,000 ML IV SCH (09:11)
[2017-04-27] MEDS: DEXAMETHASONE INJ 4 MG in SYRINGE 0 ML IV SCH ×4 (09:12→20:12)
[2017-04-27] MEDS: KETOROLAC TROMETHAMINE 15 MG/ML VIAL IV. PRN (15:11)
[2017-04-27 15:25] VITALS: BP 145/79; PULSE 77; TEMP 36.8; O2SAT 93
[2017-04-27] MEDS ORDERED: DOCUSATE SODIUM/SENNA 50/8.6MG TAB PO ONE (16:45)
[2017-04-27] MEDS: ALUMINUM/MAGNESIUM/SIMETH (MAALOX MAX) 30 ML UDC PO PRN (20:11)
--- NOTE | 2017-04-27 22:50 | Progress Note ---
Subjective Date of Service: Apr 27, 2017. Subjective Pt evaluation today including: conversation w/ patient, conversation w/ family , physical exam, chart review, lab review, review of studies 61 year old male who came in for intractable back pain. Patient reports no improvement from his back pain. Patient states discussing case with Dr. Perry and brittany be having surgery tomorrow. Problem List Medical Problems: (1) Hip pain Status: Acute (2) Intractable neuropathic pain of left lower extremity Status: Acute (3) Lumbar radiculopathy, acute Status: Acute Review of Systems Constitutional: No fever, No chills ENT: No hearing loss Respiratory: No cough, No sputum Cardiac: No chest pain, No orthopnea Abdomen: No pain, No nausea Musculoskeletal: No joint pain Neurologic: No memory loss, No paralysis Endo: + fatigue Skin: No rash, No itch All Other Systems: Reviewed and Negative Medications Current Inpatient Medications Medications (Trade) Dose Ordered Sig/Eugenie Route Start Time Stop Time Status Last Admin Dose Admin Acetaminophen (Tylenol Tab) 650 mg Q4H PRN PO 04/26/17 01:30 05/26/17 01:29 04/26/17 18:25 650 MG Al Hydrox/Mg Hydrox/Simethicone (Maalox Max Susp) 15 ml Q4H PRN PO 04/26/17 01:30 05/26/17 01:29 04/27/17 20:11 15 ML Magnesium Hydroxide (Milk Of Magnesia Susp) 30 ml Q6H PRN PO 04/26/17 01:30 05/26/17 01:29 Zolpidem Tartrate (Ambien Tab) 5 mg HSZ PRN PO 04/26/17 01:30 05/26/17 01:29 Ondansetron HCl (Zofran Inj) 4 mg Q6H PRN IV 04/26/17 01:30 05/26/17 01:29 Oxycodone HCl (Roxicodone Immediate Rel Tab) 5 mg Q6H PRN PO 04/26/17 01:30 05/10/17 01:29 04/26/17 17:50 5 MG Hydromorphone HCl (Dilaudid Inj) 2 mg Q4H PRN IV 04/26/17 13:00 05/10/17 01:29 04/27/17 03:18 2 MG Sodium Chloride 1,000 ml @ 50 mls/hr Q20H IV 04/26/17 12:45 05/26/17 12:44 04/28/17 04:46 50 MLS/HR Ketorolac Tromethamine (Toradol Inj) 15 mg Q6H PRN IV. 04/26/17 12:45 04/29/17 12:45 04/27/17 15:11 15 MG Dexamethasone Sodium Phosphate 4 mg/Syringe 1 ml @ 1 mls/min QID IV 04/26/17 13:00 04/29/17 13:00 04/28/17 09:00 1 MLS/MIN Cyclobenzaprine HCl (Flexeril Tab) 10 mg TID PO 04/26/17 14:00 05/26/17 13:59 04/27/17 20:12 10 MG Miscellaneous (Iv Fluids Completed) 1 ea PRN PRN N/A 04/26/17 14:00 04/26/18 13:59 Objective Vital Signs Date Time Temp Pulse Resp B/P (MAP) Pulse Ox O2 Delivery O2 Flow Rate FiO2 04/27/17 15:55 Room Air 04/27/17 15:25 36.8 77 18 145/79 (101) 93 Room Air 04/27/17 08:17 95 Room Air 04/27/17 08:03 36.7 86 20 124/72 (89) 95 Room Air 04/27/17 07:55 Room Air 04/27/17 00:00 Room Air 04/26/17 22:55 36.7 84 16 123/74 (90) 95 Room Air Physical Exam General Appearance: WD/WN, no apparent distress Neck: supple, no adenopathy Respiratory/Chest: chest non-tender, lungs clear, normal breath sounds Cardiovascular: regular rate, rhythm, no edema Abdomen: normal bowel sounds, non tender, soft Extremities: normal range of motion, non-tender Skin: normal color Laboratory Results Last 24 Hours Test 04/27/17 06:23 White Blood Count 18.12 K/uL Red Blood Count 5.62 M/uL Hemoglobin 17.8 g/dL Hematocrit 49.8 % Mean Corpuscular Volume 88.6 fL Mean Corpuscular Hemoglobin 31.7 pg Mean Corpuscular Hemoglobin Concent 35.7 g/dl Platelet Count 305 K/uL Mean Platelet Volume 9.9 fL Neutrophils (%) (Auto) 87.7 % Lymphocytes (%) (Auto) 6.8 % Monocytes (%) (Auto) 4.8 % Eosinophils (%) (Auto) 0.0 % Basophils (%) (Auto) 0.1 % Neutrophils # (Auto) 15.91 K/uL Lymphocytes # (Auto) 1.23 K/uL Monocytes # (Auto) 0.87 K/uL Eosinophils # (Auto) 0.00 K/uL Basophils # (Auto) 0.01 K/uL RDW Standard Deviation 42.5 fL RDW Coefficient of Variation 13.0 % Immature Granulocyte % (Auto) 0.6 % Immature Granulocyte # (Auto) 0.10 K/uL Erythrocyte Sedimentation Rate 20 mm/hr Sodium Level 132 mmol/L Potassium Level 4.2 mmol/L Chloride Level 99 mmol/L Carbon Dioxide Level 25 mmol/L Anion Gap 8.0 mmol/L Blood Urea Nitrogen 29 mg/dl Creatinine 1.21 mg/dl Est Creatinine Clear Calc Drug Dose 62.8 ml/min Estimated GFR () 75.0 Estimated GFR (Non- 64.7 BUN/Creatinine Ratio 24.1 Random Glucose 135 mg/dl Calcium Level 8.2 mg/dl Magnesium Level 2.4 mg/dl Total Bilirubin 0.8 mg/dl Aspartate Amino Transf (AST/SGOT) 19 U/L Alanine Aminotransferase (ALT/SGPT) 45 U/L Alkaline Phosphatase 77 U/L C-Reactive Protein 0.82 mg/dl Total Protein 7.3 gm/dl Albumin 3.4 gm/dl Globulin 3.9 gm/dl Albumin/Globulin Ratio 0.9 Assessment and Plan Intractable lower back pain in a 61 year old male presented to the ED with one- week history of severe lower back pain/spasm. Failed outpatient conservative management. MRI showed Multilevel lumbosacral spondylosis with mild multilevel acquired compromise of the central canal. endplate edema L1-L2. Assessment/P Intractable lower back pain/spasm secondary to below -Lower back degenerative disease -Lumbosacral multilevel spondylosis -L1-L2 endplate edema -Left lower extremity radiculopathy Will obtain surgical procedure tomorrow. Continue patient on low-dose IV steroids IV fluid hydration Continue Dilaudid IV Continue Toradol IV DVT prophylaxis Flexeril for muscle relaxant Preop clearance Patient is low risk for an intermediate risk procedure. RCRI is 0-1
[2017-04-27 23:44] VITALS: BP 126/88; PULSE 79; TEMP 36.8; O2SAT 97
[2017-04-28] VITALS (8 sets, daily range): BP systolic 108–127; BP diastolic 62–82; PULSE 61–96; TEMP 36.6–36.8; O2SAT 92–98
[2017-04-28] MEDS ORDERED: CEFAZOLIN IV 2,000 MG in SYRINGE 0 ML IV SCH
[2017-04-28] MEDS: SODIUM CHLORIDE 0.9% 1000ML 1,000 ML IV SCH (04:46)
--- NOTE | 2017-04-28 08:22 | ORTHOPEDICS PROGRESS NOTE ---
DATE: 04/28/2017 Symptomatology remains the same with incapacitating lower extremity difficulty, inability to get up to the toilet or stand and walk. Spondylolisthesis, synovial cyst and severe nerve root compression, L4-L5 lumbar spine. DISPOSITION: We will keep him n.p.o. for surgery later on today approximately 3:30-4:00. I discussed with the patient, he is more then pleased to wait to this hour for surgical intervention.
[2017-04-28] MEDS: CYCLOBENZAPRINE HCL 10 MG TAB PO SCH ×3 (09:00→21:31)
[2017-04-28] MEDS: DEXAMETHASONE INJ 4 MG in SYRINGE 0 ML IV SCH ×2 (09:00→12:49)
[2017-04-28] MEDS ORDERED: GELATIN SPONGE SZ 100 ONE ×2 (15:38→18:02)
[2017-04-28] MEDS ORDERED: VANCOMYCIN HCL 1000MG/20ML VIAL ONE (15:38)
[2017-04-28] MEDS ORDERED: THROMBIN FOR SOLN 20000 UNIT KIT ONE (15:38)
[2017-04-28] MEDS ORDERED: BUPIVACAINE/EPINEPHRINE 0.5% MPF 1:200,000 30 ML VIAL ONE (15:39)
[2017-04-28] MEDS ORDERED: BACITRACIN 50000 UNIT VIAL ONE (15:39)
[2017-04-28] MEDS ORDERED: PROPOFOL IV EMULSION 10 MG/ML 20 ML VIAL IV ONE (15:52)
[2017-04-28] MEDS ORDERED: DEXAMETHASONE SOD INJ 4 MG/ML VIAL ONE (15:52)
[2017-04-28] MEDS ORDERED: MIDAZOLAM HCL 1 MG/ML 2ML VIAL ONE (15:52)
[2017-04-28] MEDS ORDERED: ROCURONIUM BROMIDE 10 MG/ML 5 ML VIAL IV ONE (15:52)
[2017-04-28] MEDS ORDERED: FENTANYL CITRATE INJ 50 MCG/1 ML 2 ML VIAL ONE (15:52)
[2017-04-28] MEDS ORDERED: ONDANSETRON INJ 2 MG/ML 2 ML VIAL ONE (15:52)
[2017-04-28] MEDS ORDERED: LIDOCAINE HCL 2% 2 ML VIAL (20MG/ML) ONE (15:52)
[2017-04-28] MEDS ORDERED: EpHEDrine SULFATE INJ 50 MG/ML AMP IV PRN (16:00)
[2017-04-28] MEDS ORDERED: FENTANYL CITRATE INJ 50 MCG/1 ML 2 ML VIAL IV PRN (16:00)
[2017-04-28] MEDS ORDERED: ONDANSETRON INJ 2 MG/ML 2 ML VIAL IV PRN ×2 (16:00→19:00)
[2017-04-28] MEDS ORDERED: ATROPINE SULFATE 0.1 MG/ML 5ML SYR IV PRN (16:00)
[2017-04-28] MEDS ORDERED: HYDROmorphone INJ 1 MG/ML SYR IV PRN (16:00)
[2017-04-28] MEDS ORDERED: CEFAZOLIN SOD 2000MG/10 ML IV PUSH IV ONE (16:05)
--- NOTE | 2017-04-28 16:09 | History & Physical Bridge Note ---
H&P Re-Evaluation Bridge Note: I have examined the patient, reviewed the History & Physical and in the interval since the performance of the History & Physical I have noted the following changes of clinical significance: No changes noted
[2017-04-28] MEDS ORDERED: NURSING VERBAL MED ORDER ONE (16:15)
[2017-04-28] MEDS ORDERED: LARYING-O-JET KIT (LTA) ONE ×2 (16:44)
[2017-04-28] MEDS ORDERED: HYDROmorphone INJ 2 MG/ML SYR/VIAL ONE (16:44)
[2017-04-28] MEDS ORDERED: EpHEDrine SULFATE INJ 50 MG/ML AMP ONE (16:57)
--- NOTE | 2017-04-28 18:36 | DIAGNOSTIC IMAGING REPORT ---
SPINE ONE VIEW, ANY LEVEL HISTORY: Laminectomy. FLUOROSCOPY TIME: 7 seconds. FINDINGS: Intraoperative fluoroscopy was provided for the lumbar spine. 1 fluoroscopic spot images were obtained. IMPRESSION: Fluoroscopy provided for a lumbar laminectomy at L4-L5. The above report was generated using voice recognition software. It may contain grammatical, syntax or spelling errors. Electronically signed by: Moshe Ulloa M.D. 04/28/2017 6:34 PM Dictated Date/Time: 04/28/2017 6:34 PM
[2017-04-28] MEDS ORDERED: SODIUM CHLORIDE 0.9% 1000ML 1,000 ML IV SCH (18:48)
--- NOTE | 2017-04-28 18:52 | [facility] Post Operative Brief Note ---
Immediate Operative Summary Operative Date Apr 28, 2017. Pre-Operative Diagnosis Spondylolisthesis, synovial cyst and severe nerve root compression, L4-L5 lumbar spine. Post-Operative Diagnosis Same as preoperative diagnosis Procedure(s) Performed Decompression, Posterior Lumbar Fusion L4-L5 Surgeon Dr. Perry Wood Type Finisher Surgeon(s) Lewis Espitia Estimated Blood Loss 200ml Findings severe stenosis Specimens none Complication(s) None Disposition Recovery Room / PACU
[2017-04-28] MEDS ORDERED: HYDROmorphone HCL 0.5MG/ML 50 ML CASSETTE IV PRN (19:00)
[2017-04-28] MEDS ORDERED: MAGNESIUM HYDROXIDE SUSP 30 ML UDC PO PRN (19:00)
[2017-04-28] MEDS ORDERED: ACETAMINOPHEN 325 MG TAB PO PRN (19:00)
[2017-04-28] MEDS ORDERED: LORAZEPAM INJ 1 MG in SYRINGE 0.5 ML IV PRN (19:00)
[2017-04-28] MEDS ORDERED: METOCLOPRAMIDE HCL INJ 5 MG/ML 2 ML VIAL IV PRN (19:00)
[2017-04-28] MEDS ORDERED: CEFAZOLIN IV 1,000 MG in DEXTROSE 5% 50ML 50 ML IV SCH (19:00)
[2017-04-28] MEDS ORDERED: NALOXONE HCL 0.4 MG/1 ML VIAL/CARP IV PRN (19:00)
[2017-04-28] MEDS ORDERED: LORAZEPAM 1 MG TAB PO PRN (19:00)
[2017-04-28] MEDS ORDERED: PROMETHAZINE HCL INJ 12.5 MG in SODIUM CHLORIDE 0.9% 50ML 50 ML IV PRN (19:00)
[2017-04-28] MEDS ORDERED: HYDROmorphone HCL 0.5MG/ML 50 ML CASSETTE ONE (19:09)
[2017-04-28 19:39] LABS: HEMATOCRIT 45.3 % (42-52)
--- NOTE | 2017-04-28 20:23 | Anesthesiology Progress Note ---
Anesthesia Post Op Note Date & Time Apr 28, 2017 at 20:23 Vital Signs Pain Intensity: 4 Vital Signs Past 12 Hours Date Time Temp Pulse Resp B/P (MAP) Pulse Ox O2 Delivery O2 Flow Rate FiO2 04/28/17 20:13 36.6 94 18 127/82 (97) 98 Nasal Cannula 4.0 04/28/17 19:30 36.4 91 23 144/86 97 Oxymask 4 04/28/17 19:20 85 20 133/85 96 Oxymask 4 04/28/17 19:10 89 19 141/89 98 Oxymask 10 04/28/17 19:00 81 13 122/61 99 Oxymask 10 04/28/17 18:50 36.4 96 14 101/62 100 Oxymask 10 04/28/17 15:19 36.6 61 18 108/62 (77) 94 Room Air 04/28/17 12:17 36.8 67 18 110/65 (80) 92 Room Air Notes Mental Status: alert / awake / arousable, participated in evaluation Pt Amnestic to Procedure: Yes Nausea / Vomiting: adequately controlled Pain: adequately controlled Airway Patency, RR, SpO2: stable & adequate BP & HR: stable & adequate Hydration State: stable & adequate Anesthetic Complications: no major complications apparent
[2017-04-28] MEDS: KETOROLAC TROMETHAMINE 30 MG/ML VIAL IV SCH (21:31)
[2017-04-28] MEDS: DEXAMETHASONE INJ 10 MG in SYRINGE 0 ML IV SCH (21:40)
--- NOTE | 2017-04-28 22:26 | Progress Note ---
Subjective Date of Service: Apr 28, 2017. Subjective 61 year old male who came in for intractable back pain. Patient reports feeling tired as he just came back from surgery. He does state thought that his bilateral leg pain has improved. Problem List Medical Problems: (1) Hip pain Status: Acute (2) Intractable neuropathic pain of left lower extremity Status: Acute (3) Lumbar radiculopathy, acute Status: Acute Objective Vital Signs Date Time Temp Pulse Resp B/P (MAP) Pulse Ox O2 Delivery O2 Flow Rate FiO2 04/28/17 21:40 36.8 95 16 116/75 (89) 97 Nasal Cannula 4.0 04/28/17 20:40 36.8 90 16 123/76 (92) 97 Nasal Cannula 4.0 04/28/17 20:13 36.6 94 18 127/82 (97) 98 Nasal Cannula 4.0 04/28/17 19:30 36.4 91 23 144/86 97 Oxymask 4 04/28/17 19:20 85 20 133/85 96 Oxymask 4 04/28/17 19:10 89 19 141/89 98 Oxymask 10 04/28/17 19:00 81 13 122/61 99 Oxymask 10 04/28/17 18:50 36.4 96 14 101/62 100 Oxymask 10 04/28/17 15:19 36.6 61 18 108/62 (77) 94 Room Air 04/28/17 12:17 36.8 67 18 110/65 (80) 92 Room Air 04/28/17 08:04 Room Air 04/28/17 07:25 36.7 67 18 116/69 (85) 95 Room Air 04/27/17 23:44 36.8 79 15 126/88 (101) 97 Room Air Physical Exam General Appearance: WD/WN, no apparent distress Neck: supple, no adenopathy Respiratory/Chest: chest non-tender, lungs clear, normal breath sounds Cardiovascular: regular rate, rhythm, no edema Abdomen: normal bowel sounds, non tender, soft Skin: normal color Lymphatic: no adenopathy Laboratory Results Last 24 Hours Test 04/28/17 19:10 Hemoglobin 15.8 g/dL Hematocrit 45.3 % Assessment and Plan Intractable lower back pain in a 61 year old male presented to the ED with one- week history of severe lower back pain/spasm. Failed outpatient conservative management. MRI showed Multilevel lumbosacral spondylosis with mild multilevel acquired compromise of the central canal. endplate edema L1-L2. Assessment/Plan Intractable lower back pain/spasm and left lower extremity radiculopathy secondary to below -Severe stenosis with instability, L4-L5. Patient had lumbar spine laminectomy L4-L5, 2 level, pedicle screw instrumentation L4-L5, single level and posterolateral fusion L4-5 single level. Continue patient on low-dose IV steroids IV fluid hydration DVT prophylaxis Flexeril for muscle relaxant Continued [facility] stay due to: other Discharge planning: home
[2017-04-28] MEDS: CEFAZOLIN IV 1,000 MG in SYRINGE 0 ML IV SCH (23:59)
[2017-04-29 00:12] VITALS: O2SAT 95
[2017-04-29] MEDS: SODIUM CHLORIDE 0.9% 1000ML 1,000 ML IV SCH ×2 (02:13→02:24)
[2017-04-29 03:32] VITALS: BP 127/74; PULSE 83; TEMP 36.5; O2SAT 96
[2017-04-29] MEDS: KETOROLAC TROMETHAMINE 30 MG/ML VIAL IV SCH ×4 (03:42→21:10)
[2017-04-29] MEDS: DEXAMETHASONE INJ 10 MG in SYRINGE 0 ML IV SCH ×3 (05:41→21:37)
[2017-04-29] MEDS ORDERED: DC PCA ONE (06:00)
[2017-04-29] MEDS ORDERED: HYDROmorphone INJ 2 MG/ML SYR/VIAL IV PRN (06:00)
[2017-04-29] MEDS ORDERED: HYDROmorphone INJ 1 MG/ML SYR IV PRN (06:00)
[2017-04-29] MEDS ORDERED: BISACODYL 10 MG SUPP PR PRN (06:00)
[2017-04-29] MEDS ORDERED: BISACODYL 5 MG TABEC PO PRN (06:00)
[2017-04-29] MEDS ORDERED: NURSING DECISION MEDICATION ORDER SCH (06:30)
[2017-04-29] MEDS: OXYCODONE/ACETAMINOPHEN 5-325 TAB PO PRN ×3 (07:21→19:34)
[2017-04-29] MEDS: CEFAZOLIN IV 1,000 MG in SYRINGE 0 ML IV SCH ×2 (07:21→16:35)
[2017-04-29] MEDS: CYCLOBENZAPRINE HCL 10 MG TAB PO SCH ×3 (07:22→21:09)
[2017-04-29] MEDS: POLYETHYLENE (MIRALAX) 17 GM PACK PO SCH (07:22)
[2017-04-29 07:53] LABS: HEMATOCRIT 39.7 % (42-52); MEAN CELL VOLUME 90.8 fL (80-100); MEAN CORPUSCULAR HEMOGLOBIN 30.9 pg (25-34); MEAN PLATELET VOLUME 9.7 fL (7.4-10.4); PLATELET COUNT 230 K/uL (130-400); RED BLOOD COUNT 4.37 M/uL (4.7-6.1); WHITE BLOOD COUNT 14.28 K/uL (4.8-10.8)
[2017-04-29 08:23] LABS: BLOOD UREA NITROGEN 27 mg/dl (7-18); BUN/CREATININE RATIO 22.4 (10-20); CALCIUM 7.5 mg/dl (8.5-10.1); CARBON DIOXIDE 25 mmol/L (21-32); CHLORIDE 101 mmol/L (98-107); CREATININE 1.19 mg/dl (0.60-1.40); GLUCOSE 119 mg/dl (70-99); SODIUM 133 mmol/L (136-145)
[2017-04-29 09:12] VITALS: BP 111/71; PULSE 82; TEMP 36.7; O2SAT 95
[2017-04-29 12:18] VITALS: BP 141/79; PULSE 77; TEMP 36.8; O2SAT 95
--- NOTE | 2017-04-29 12:52 | OPERATIVE REPORT ---
DATE OF OPERATION: 04/28/2017 PREOPERATIVE DIAGNOSIS: Severe stenosis with instability, L4-L5. POSTOPERATIVE DIAGNOSIS: Same. PROCEDURES: Include lumbar spine laminectomy L4-L5, 2 level, pedicle screw instrumentation L4-L5, single level and posterolateral fusion L4-5 single level. SURGEON: Dr. Perry. VESSEL MANAGER: Harjeet Stevens PA-C. COMPLICATIONS: Zero. BLOOD LOSS: Less than 200. DESCRIPTION OF PROCEDURE: The patient was taken to the operating room and general intubated anesthetic provided to the patient, placed prone, scrubbed, prepped and draped sterile. We made a skin incision and fascia incision down to the spine. We did a preop interoperative radiograph. We were at the 4-5 interval. We carefully and meticulously decompressed the neural elements. It was a significant very tedious dissection. I was pleased with the freedom of the nerve roots. There was some deformity in the lamina of the facet joints. We then irrigated thoroughly. Pedicle screw instrumentation was provided. I felt the patient had a moderate instability but not gross instability so I did decide to do a fusion at L4-L5, pedicle screws and bilateral lateral fusion. We bone grafted out over the transverse processes 4 and 5. We irrigated and closed in layers with #1 Vicryl, 2-0 and staple gun. Sterile dressings applied. The patient returned to PACU stable. IMPLANTS USED: By the [employer]. No complications with the procedure. I attest to the content of the Intraoperative Record and any orders documented therein. Any exception s are noted below.
[2017-04-29] MEDS: ALUMINUM/MAGNESIUM/SIMETH (MAALOX MAX) 30 ML UDC PO PRN ×2 (13:28→19:35)
--- NOTE | 2017-04-29 14:25 | Anesthesiology Progress Note ---
Anesthesia Post Op Note Date & Time Apr 29, 2017 at 14:24 Vital Signs Vital Signs Past 12 Hours Date Time Temp Pulse Resp B/P (MAP) Pulse Ox O2 Delivery O2 Flow Rate FiO2 04/29/17 12:18 36.8 77 18 141/79 (99) 95 Room Air 04/29/17 09:12 36.7 82 16 111/71 (84) 95 Room Air 04/29/17 07:15 Room Air 04/29/17 03:32 36.5 83 16 127/74 (91) 96 Room Air Notes Mental Status: alert / awake / arousable, participated in evaluation Pt Amnestic to Procedure: Yes Nausea / Vomiting: adequately controlled Pain: adequately controlled Airway Patency, RR, SpO2: stable & adequate BP & HR: stable & adequate Hydration State: stable & adequate Anesthetic Complications: no major complications apparent
[2017-04-29 15:55] VITALS: BP 126/53; PULSE 69; TEMP 36.9; O2SAT 91
[2017-04-29 22:47] VITALS: BP 145/81; PULSE 74; TEMP 36.7; O2SAT 95
[2017-04-30] MEDS: DEXAMETHASONE INJ 10 MG in SYRINGE 0 ML IV SCH (05:00)
[2017-04-30] MEDS: OXYCODONE/ACETAMINOPHEN 5-325 TAB PO PRN ×2 (05:07→09:59)
[2017-04-30 07:06] VITALS: BP 144/79; PULSE 56; TEMP 36.4; O2SAT 97
[2017-04-30] MEDS: CYCLOBENZAPRINE HCL 10 MG TAB PO SCH (08:37)
[2017-04-30] MEDS: POLYETHYLENE (MIRALAX) 17 GM PACK PO SCH (08:37)
--- NOTE | 2017-04-30 09:30 | Progress Note ---
Subjective Date of Service: Apr 29, 2017. Subjective 61 year old male who is on day 1 S/P surgery. Patient reports feeling well. He states that his pain in his lower extremities is now only mild. Problem List Medical Problems: (1) Hip pain Status: Acute (2) Intractable neuropathic pain of left lower extremity Status: Acute (3) Lumbar radiculopathy, acute Status: Acute Review of Systems Constitutional: No fever, No chills Respiratory: No cough, No sputum Abdomen: No pain, No nausea Neurologic: No memory loss Psychiatric: No depression symptoms Skin: No rash, No itch All Other Systems: Reviewed and Negative Medications Current Inpatient Medications Medications (Trade) Dose Ordered Sig/Eugenie Route Start Time Stop Time Status Last Admin Dose Admin Al Hydrox/Mg Hydrox/Simethicone (Maalox Max Susp) 15 ml Q4H PRN PO 04/26/17 01:30 05/26/17 01:29 04/29/17 19:35 15 ML Magnesium Hydroxide (Milk Of Magnesia Susp) 30 ml Q6H PRN PO 04/26/17 01:30 05/26/17 01:29 Zolpidem Tartrate (Ambien Tab) 5 mg HSZ PRN PO 04/26/17 01:30 05/26/17 01:29 Cyclobenzaprine HCl (Flexeril Tab) 10 mg TID PO 04/26/17 14:00 05/26/17 13:59 04/30/17 08:37 10 MG Miscellaneous (Iv Fluids Completed) 1 ea PRN PRN N/A 04/26/17 14:00 04/26/18 13:59 Diphenhydramine HCl (Benadryl Cap) 25 mg Q6H PRN PO 04/28/17 19:00 05/28/17 18:59 Bisacodyl (Dulcolax Supp) 10 mg DAILY PRN [place] 04/29/17 06:00 05/29/17 05:59 Bisacodyl (Dulcolax Tab) 5 mg DAILY PRN PO 04/29/17 06:00 05/29/17 05:59 Polyethylene (Miralax Powder Packet) 17 gm DAILY PO 04/29/17 09:00 05/29/17 08:59 04/30/17 08:37 17 GM Lorazepam 1 mg/ Syringe 1 ml @ 1 mls/min Q6H PRN IV 04/28/17 19:00 05/28/17 18:59 Lorazepam (Ativan Tab) 1 mg Q6H PRN PO 04/28/17 19:00 05/28/17 18:59 Metoclopramide HCl (Reglan Inj) 10 mg Q6H PRN IV 04/28/17 19:00 05/28/17 18:59 Ondansetron HCl (Zofran Inj) 4 mg Q6H PRN IV 04/28/17 19:00 05/28/17 18:59 Promethazine HCl 12.5 mg/Sodium Chloride 50.5 ml @ 202 mls/hr Q6H PRN IV 04/28/17 19:00 05/28/17 18:59 Hydromorphone HCl (Dilaudid Inj) 1.5 mg Q3H PRN IV 04/29/17 06:00 05/13/17 05:59 Oxycodone/ Acetaminophen (Percocet 5-325mg Tab) 2 tab Q4H PRN PO 04/29/17 06:00 05/13/17 05:59 04/29/17 13:28 2 TAB Hydromorphone HCl (Dilaudid Inj) 1 mg Q3H PRN IV 04/29/17 06:00 05/13/17 05:59 Oxycodone/ Acetaminophen (Percocet 5-325mg Tab) 1 tab Q4H PRN PO 04/29/17 06:00 05/13/17 05:59 04/30/17 05:07 1 TAB Acetaminophen (Tylenol Tab) 650 mg Q6H PRN PO 04/28/17 19:00 05/28/17 18:59 Objective Vital Signs Date Time Temp Pulse Resp B/P (MAP) Pulse Ox O2 Delivery O2 Flow Rate FiO2 04/30/17 07:30 Room Air 04/30/17 07:06 36.4 56 19 144/79 (100) 97 Room Air 04/29/17 22:47 36.7 74 16 145/81 (102) 95 Room Air 04/29/17 19:30 Room Air 04/29/17 15:55 36.9 69 18 126/53 (77) 91 Room Air 04/29/17 12:18 36.8 77 18 141/79 (99) 95 Room Air Physical Exam Comments: General Appearance: WD/WN, no apparent distress Neck: supple, no adenopathy Respiratory/Chest: chest non-tender, lungs clear, normal breath sounds Cardiovascular: regular rate, rhythm, no edema Abdomen: normal bowel sounds, non tender, soft Skin: normal color Lymphatic: no adenopathy Assessment and Plan Intractable lower back pain in a 61 year old male presented to the ED with one- week history of severe lower back pain/spasm. Failed outpatient conservative management. MRI showed Multilevel lumbosacral spondylosis with mild multilevel acquired compromise of the central canal. endplate edema L1-L2. Assessment/Plan Intractable lower back pain/spasm and left lower extremity radiculopathy secondary to below -Severe stenosis with instability, L4-L5. Patient had lumbar spine laminectomy L4-L5, 2 level, pedicle screw instrumentation L4-L5, single level and posterolateral fusion L4-5 single level. Continue patient on low-dose IV steroids. Will be stopped today. IV fluid hydration DVT prophylaxis Flexeril for muscle relaxant Disposition: Discharge likely tomorrow. Continued [facility] stay due to: other Discharge planning: home
[2017-04-30] MEDS ORDERED: HYDR-5688 PO (10:58)
--- NOTE | 2017-04-30 10:59 | Discharge Instructions ---
Discharge Instructions Date of Service Apr 30, 2017. Admission Reason for Admission: Ambulatory Dysfunction, Radiculopathy Due To Lumba Discharge Discharge Diagnosis / Problem: SAME ABOVE Discharge Goals Goal(s): Decrease discomfort, Improve function Activity Recommendations Activity Limitations: as noted below Lifting Limitations: until after follow-up appointment Exercise/Sports Limitations: until after follow-up appointment Shower/Bathe: tomorrow, keep incision dry . Instructions / Follow-Up Instructions / Follow-Up MEDICATIONS: Please take your prescriptions as instructed at your pre-op appointment. SPECIAL CARE: The following information is intended to answer some of the common questions and concerns regarding your surgery. Each patient is an individual and receives individual counselling throughout the course of treatment, from diagnosis to surgery all the way through recovery. What follows is not an exhaustive list, but should be a useful guide to some of the common questions and concerns patients have regarding their surgeries. These are not provided to keep you from calling us; rather, they give you something accurate and concrete to reference as you recover from your procedure. If you need us, we are available to you. As always, if you are not sure about something, call us at [phone]. MEDICAL EMERGENCIES: For these conditions, call 911 or go to your local hospital-based Emergency Department - not [facility] or equivalent. * Paralysis * Severe chest pain or difficulty breathing * Swelling or redness of either leg Spine procedures can be rather complex and though complications are rare, they do occur. In such cases, effective advice regarding emergency situations cannot always be addressed over the telephone. You may be referred to the emergency department for more effective management of your problem. Activity Limitations: It is important to give your body time to heal, so please limit your activities : * In general, don't do anything that moves your spine too much. You should avoid contact sports, twisting or heavy lifting while you recover. * 5-10 pounds is all you should attempt to lift. * You should not plan on driving for approximately 3 weeks and you should avoid traveling more than 30-45 minutes at a time. Longer trips should be broken down with walking breaks spaced appropriately. * Physical therapy is not usually required. * Walking and good posture practices will help you recover and regain your function. * Avoid straining or sudden changes in position. * In general, the goal is to take it easy and recover. Don't cause any new problems. Just relax. Showers: * Do not take a bath, use a Jacuzzi or hot tub or otherwise submerge your incision. * It is usually safe to take a shower 4-5 days after your surgery. * Your incision does not require any special creams or ointments. * Simply clean it with soap and water, dry and re-dress with a clean bandage afterwards. Incision: * Keep incision clean, dry and protected until your first follow-up appointment. * Some amount of drainage and redness is normal. Any drainage should be fairly clear and not have a foul odor. * If you feel anything is wrong or you have excessive drainage, please call us. * Your stitches and princess will be removed 10-14 days after your surgery. At the time of your first post-op visit. * Neck surgeries are typically closed with a suture underneath the skin. The steri-strips over the incision should be maintained until we see you in the office. Bracing: * You may be provided with a back or neck brace to encourage good posture and prevent injury. It will remind you not to do too much as you heal and will alert others to the fact that you have had a surgery. * Back braces may be removed for showers and when you are resting at home. They must be worn when you are walking around for any period of time or for travel. * For neck surgery, you will likely be provided with two cervical collars. The soft collar ([place] or foam rubber) is worn most commonly throughout the day and while sleeping. The plastic collar (provided at the hospital) is for showering/bathing. * Except while eating, collars should remain in place. More specifically, bracing is provided for a purpose and should be worn. * Please obtain your brace or collars prior to your operation and bring them to the hospital with you on the day of surgery. * You should also bring your collars to your post-op appointment with Dr. Perry. You should always take good care of your body and practice healthy habits, especially following surgery. You should: * Follow your doctor's treatment plan * Sit and stand properly with good posture (ears over shoulders, shoulders over hips) Don't slouch * Learn to lift correctly * Exercise regularly (low-impact aerobic exercise is especially good, but check with your doctor first) * Generally, be up and walking for 5-10 minutes at a time at least 3-4 times per day from the day you get home * Increasing walking to tolerance until you can walk for 20-30 minutes at a time * Attain and maintain a healthy body weight * Eat healthy foods ( a well-balanced, low-fat diet rich in fruits and vegetables) and get enough calcium * Avoid excessive use of alcohol When to call our office - If you notice any of the following: * Increased pain not relieve by pain medicine * Fevers greater then 100 degrees F, chills or flu symptoms * Increased redness around incision * Drainage from the incision that is not clear * Any foul smelling drainage * Swelling or fluid collection beneath the skin Miscellaneous: * In the hospital, you may be given a walker or cane for support while walking. These are temporary needs and are intended to prevent injuries due to falls. You may discontinue them when you feel strong and steady enough on your feet. * Sleep in a comfortable position. We find that many patients find a lounge chair or recliner with several pillows to be beneficial in the early post-operative period. * The support stockings should be used for 7-10 days and may be discontinued when you are back to walking more and conducting usual household activities. No problem is insignificant. We are here to help you and get you well. Contact us at [phone]. Definitions: Foraminotomy: If part of the disc or a bone spur (osteophyte) is pressing on a nerve as it leaves the vertebra (through an exit called the foramen), a foraminotomy may be done. Otomy means "to make an opening." A foraminotomy is making the opening of the foramen larger, so the nerve can exit without being compressed. Laminotomy: Similar to the foraminotomy, a laminotomy makes a larger opening, this time in your bony plate protecting your spinal canal and spinal cord (the lamina). The lamina may be pressing on your nerve, so the surgeon may make more room for the nerves using a laminotomy. Laminectomy: Sometimes, a laminotomy is not sufficient. The surgeon may need to remove all or part of the lamina. This procedure is called a laminectomy. This can often be done at many levels without any harmful effects. Current Hospital Diet Patient's current hospital diet: Regular Diet Discharge Diet Recommended Diet: Regular Diet Procedures Procedures Performed: Decompression, Posterior Lumbar Fusion L4-L5 Pending Studies Studies pending at discharge: no Medical Emergencies . Who to Call and When: Medical Emergencies: If at any time you feel your situation is an emergency, please call 911 immediately. . Non-Emergent Contact Non-Emergency issues call your: Primary Care Provider . "Provider Documentation" section prepared by Harjeet Stevens. . VTE Core Measure Inpt VTE Proph given/why not?: SCD's, Treatment not indicated
--- NOTE | 2017-04-30 11:17 | DISCHARGE SUMMARY ---
He is improved, stable. Alert, oriented. Mentation normal. Vital signs stable, 36.4 temperature, 144/79 pressure. Wound is protected. I did not examine it, but there was reportedly no discharge. Neurologically intact and improving, up ambulatory good bowel sounds. ASSESSMENT: Status post reconstructive spine surgery. Doing well short run. DISPOSITION: Will get him discharged home later on this morning or early afternoon. Prescriptions will be on his chart. We should see him back for followup examination in approximately 10-14 days. He should use a walker and he will be given instructions, precautions, and keep wound clean and dry.
[2017-04-30 12:03] VITALS: BP 144/79; PULSE 56; TEMP 36.4; O2SAT 97
--- NOTE | 2017-04-30 12:31 | Discharge Instructions ---
Discharge Instructions Date of Service Apr 30, 2017. Admission Reason for Admission: Ambulatory Dysfunction, Radiculopathy Due To Lumba Discharge Discharge Diagnosis / Problem: Intractable Back Pain Discharge Goals Goal(s): Decrease discomfort, Improve function, Increase independence Activity Recommendations Activity Limitations: as noted below (as recommended by Ortho) . Instructions / Follow-Up Instructions / Follow-Up Post care instructions as per Ortho F/U with Ortho F/U with PCP in 1 week Current Hospital Diet Patient's current hospital diet: Regular Diet Discharge Diet Recommended Diet: Regular Diet Procedures Procedures Performed: Decompression, Posterior Lumbar Fusion L4-L5 Pending Studies Studies pending at discharge: no Medical Emergencies . Who to Call and When: Medical Emergencies: If at any time you feel your situation is an emergency, please call 911 immediately. . Non-Emergent Contact Non-Emergency issues call your: Primary Care Provider Call Non-Emergent contact if: your pain is worsening . . "Provider Documentation" section prepared by Blake Rodriguez. . VTE Core Measure Inpt VTE Proph given/why not?: SCD's, Treatment not indicated
--- NOTE | 2017-04-30 12:32 | Discharge Summary ---
Discharge Summary Date of Service Apr 30, 2017. Discharge Summary Admission Date: Apr 26, 2017 at 15:48 Discharge Date: Apr 30, 2017 Immunizations: Have You Had Influenza Vaccine: Unknown History of Tetanus Vaccine?: Unknown History of Pneumococcal: Unknown History of Hepatitis B Vaccine: Unknown Hospital Course Intractable lower back pain in a 61 year old male presented to the ED with one- week history of severe lower back pain/spasm. Failed outpatient conservative management. MRI showed Multilevel lumbosacral spondylosis with mild multilevel acquired compromise of the central canal. endplate edema L1-L2. Assessment/Plan Intractable lower back pain/spasm and left lower extremity radiculopathy secondary to below -Severe stenosis with instability, L4-L5. Patient had lumbar spine laminectomy L4-L5, 2 level, pedicle screw instrumentation L4-L5, single level and posterolateral fusion L4-5 single level. Continue patient on low-dose IV steroids. Will be stopped today. IV fluid hydration DVT prophylaxis Flexeril for muscle relaxant Disposition: Discharge likely tomorrow. This includes examination of the patient, discharge planning, medication reconciliation, and communication with other providers. Discharge Instructions Please refer to the electronic Patient Visit Report (Discharge Instructions) for additional information.
== END 2017-04-30 13:30 | disposition home or self-care (01) | DRG 460 ==
LOC: EDBD 20:13 → C.EDC 20:14 → C.MSW 04-26 01:26 → ENRESERV 04-26 01:37 → OBSVTOIN 04-26 15:48
PROVIDERS: ADMIT Student in an Organized Health Care Education/Training Program; ATTEND Internal Medicine
PROC: 0SG0071 Fusion of Lumbar Vertebral Joint with Autologous Tissue Substitute, Posterior Approach, Posterior Column, Open Approach (ICD-10-PCS; principal; 2017-04-28 06:30)
PROC: 01NB0ZZ Release Lumbar Nerve, Open Approach (ICD-10-PCS; principal; 2017-04-28 06:30)
DX: M51.16 Intervertebral disc disorders with radiculopathy, lumbar region (principal); M47.27 Other spondylosis with radiculopathy, lumbosacral region; M43.16 Spondylolisthesis, lumbar region; M71.38 Other bursal cyst, other site; Z87.891 Personal history of nicotine dependence; Z82.49 Family history of ischemic heart disease and other diseases of the circulatory system; Z83.3 Family history of diabetes mellitus